=== PATIENT | male | born 1955 | race Two or more races ===

== ENCOUNTER 2024-08-14 12:32 | Emergency (ER) | payer OTHER ==
[2024-08-14 12:38] VITALS: BP 128/82; PULSE 91; RESP 18; TEMP 98.1; BMI 30.7
[2024-08-14] MEDS ORDERED: ACETAMINOPHEN 325 MG TABLET (FP) ONE (13:15)
[2024-08-14] MEDS: ACETAMINOPHEN 500 MG TABLET (FP) PO ONE (13:17)
[2024-08-14] MEDS ORDERED: oxyCODONE HCL 5 MG TABLET ONE (14:32)
[2024-08-14] MEDS: oxyCODONE HCL 5 MG TABLET PO ONE (14:34)
== END 2024-08-14 16:59 | disposition home or self-care (01) ==
LOC: JER 12:32
PROC: 2W3CX1Z Immobilization of Right Lower Arm using Splint (ICD-10-PCS; principal; 2024-08-14)
DX: S82.51XA Displaced fracture of medial malleolus of right tibia, initial encounter for closed fracture (principal); W00.9XXA Unspecified fall due to ice and snow, initial encounter
CPT/HCPCS: 70450-TC; 72125-TC; 73562-TC-RT-FY; 73590-TC-RT-FY; 73610-TC-RT-FY; 73630-TC-RT-FY; 99284-25